=== PATIENT | male | born 1955 | race Caucasian/White ===

== ENCOUNTER 2020-08-30 08:00 | Emergency (ER) | payer MEDICARE ==
[~2020-08-30] VITALS: Ht 188 cm; Wt 106.7 kg
[2020-08-30] MEDS ORDERED: IOHEXOL 300 MG/ML 75 ML VIAL. IV ONE ×2 (08:30→09:00)
[2020-08-30 08:33] LABS: BASO % 0 % (0-3); EOS % 0 % (0-3); HEMATOCRIT 47.1 % (39.0-53.0); HEMOGLOBIN 15.7 g/dL (13.0-17.5); LYMPH # 0.7 x10^3/uL (1.0-4.8); LYMPH % 9 % (24-48); MEAN CORPUSCULAR HEMOGLOBIN 31 pg (25-35); MEAN CORPUSCULAR HGB CONC 33 g/dL (31-37); MEAN CORPUSCULAR VOLUME 92 fL (79-100); MONO # 0.2 x10^3/uL (0.0-1.1); MONO % 3 % (0-9); NEUT # 7.1 x10^3uL (1.8-7.7); NEUT % 88 % (31-73); PLATELET COUNT 230 x10^3/uL (140-400); RED BLOOD COUNT 5.15 x10^6/uL (4.30-5.70); RED CELL DISTRIBUTION WIDTH 13.1 % (11.5-14.5); WHITE BLOOD COUNT 8.1 x10^3/uL (4.0-11.0)
[2020-08-30 08:45] LABS: CALCIUM 10.4 mg/dL (8.5-10.1); CREATININE 1.3 mg/dL (0.7-1.3); GFR 55.4; POTASSIUM 4.2 mmol/L (3.5-5.1)
[2020-08-30] MEDS ORDERED: ONDANSETRON PF 4 MG/2 ML VIAL. IV ONE (08:45)
[2020-08-30] MEDS ORDERED: IV NORMAL SALINE 1,000ML 1,000 ML IV ONE (08:45)
--- NOTE | 2020-08-30 08:46 | PHYS DOC ---
Past History Past Medical History: GERD Past Surgical History: Appendectomy Additional Smoking Information: pt states that he hasn't smoked "for over 40 years" Alcohol Use: None General Adult EDM: Chief Complaint: ABDOMINAL PAIN HPI: HPI: This is a pleasant 65-year-old male presenting the emergency department today with epigastric abdominal pain that comes and goes. It is associated with nausea and vomiting. He has had multiple episodes of vomiting. He describes the vomitus is nonbloody and nonbilious. He reports normal stools and had a bowel movement yesterday. He denies fevers or chills. He denies changes in his skin color. He denies chest pain or shortness of breath. The pain is a sharp shooting pain. He thought it may have been gastritis and so he took an antacid which did not improve. He has a history of what he describes as "gallbladder pain". Review of systems is negative for polyuria dysuria hematuria diarrhea. Positive for abdominal pain. Negative for chest pain or shortness of breath. All other review of systems negative. ED course: 65-year-old male presenting with epigastric abdominal pain. Vital signs show hypertension. Otherwise heart rate within normal limits. Unremarkable CBC. Chemistry panel unremarkable other than elevated glucose. Lipase just above the reference range of normal. CT shows gallbladder stone without signs of cholecystitis. Repeat abdominal exam shows a nontender gallbladder. We will discharge the patient and refer him to a surgeon for outpatient evaluation for surgical cholecystectomy. Current Medications: Current Meds: Current Medications Medications (Trade) Dose Ordered Sig/Allison Start Time Stop Time Status Last Admin Dose Admin Iohexol (Omnipaque 300 Mg/ml) 75 ml 1X ONCE 08/30/20 08:30 08/30/20 08:31 DC Ondansetron HCl (Zofran) 4 mg 1X ONCE 08/30/20 08:45 08/30/20 08:46 Sodium Chloride 1,000 ml @ 1,000 mls/hr 1X ONCE 08/30/20 08:45 08/30/20 09:44 Allergies: Allergies: Allergies Coded Allergies Type Severity Reaction Last Updated Verified No Known Drug Allergies 08/30/20 No Physical Exam: PE: Constitutional: Well developed, well nourished, no acute distress, non-toxic appearance. [] HENT: Normocephalic, atraumatic, bilateral external ears normal, oropharynx moist, no oral exudates, nose normal. [] Eyes: PERRLA, EOMI, conjunctiva normal, no discharge. [] Neck: Normal range of motion, no tenderness, supple, no stridor. [] Cardiovascular:Heart rate regular rhythm, no murmur [] Lungs & Thorax: Bilateral breath sounds clear to auscultation [] Abdomen: Bowel sounds normal, soft, no tenderness, no masses, no pulsatile masses. [] No rebound tenderness or guarding. Negative McBurney's point. Nontender gallbladder. Negative Valera sign. Skin: Warm, dry, no erythema, no rash. [] Back: No tenderness, no CVA tenderness. [] Extremities: No tenderness, no cyanosis, no clubbing, ROM intact, no edema. [] Neurologic: Alert and oriented X 3, normal motor function, normal sensory function, no focal deficits noted. [] Psychologic: Affect normal, judgement normal, mood normal. [] Current Patient Data: Labs: Laboratory Tests Test 08/30/20 08:14 White Blood Count 8.1 x10^3/uL (4.0-11.0) Red Blood Count 5.15 x10^6/uL (4.30-5.70) Hemoglobin 15.7 g/dL (13.0-17.5) Hematocrit 47.1 % (39.0-53.0) Mean Corpuscular Volume 92 fL (79-100) Mean Corpuscular Hemoglobin 31 pg (25-35) Mean Corpuscular Hemoglobin Concent 33 g/dL (31-37) Red Cell Distribution Width 13.1 % (11.5-14.5) Platelet Count 230 x10^3/uL (140-400) Neutrophils (%) (Auto) 88 % (31-73) H Lymphocytes (%) (Auto) 9 % (24-48) L Monocytes (%) (Auto) 3 % (0-9) Eosinophils (%) (Auto) 0 % (0-3) Basophils (%) (Auto) 0 % (0-3) Neutrophils # (Auto) 7.1 x10^3uL (1.8-7.7) Lymphocytes # (Auto) 0.7 x10^3/uL (1.0-4.8) L Monocytes # (Auto) 0.2 x10^3/uL (0.0-1.1) Eosinophils # (Auto) 0.0 x10^3/uL (0.0-0.7) Basophils # (Auto) 0.0 x10^3/uL (0.0-0.2) Vital Signs: Vital Signs Date Time Temp Pulse Resp B/P (MAP) Pulse Ox O2 Delivery O2 Flow Rate FiO2 08/30/20 08:10 97.5 70 16 174/88 (116) 98 EKG: EKG: EKG shows sinus rhythm with a regular rate. ST segments congruent. Not suggestive of acute ischemia. [] Radiology/Procedures: Radiology/Procedures: [] Heart Score: Risk Factors: Risk Factors: DM, Current or recent (<one month) smoker, HTN, HLP, family history of CAD, obesity. Risk Scores: Score 0 - 3: 2.5% MACE over next 6 weeks - Discharge Home Score 4 - 6: 20.3% MACE over next 6 weeks - Admit for Clinical Observation Score 7 - 10: 72.7% MACE over next 6 weeks - Early Invasive Strategies Course & Med Decision Making: Course & Med Decision Making Pertinent Labs and Imaging studies reviewed. (See chart for details) [] Dragon Disclaimer: Dragon Disclaimer: This electronic medical record was generated, in whole or in part, using a voice recognition dictation system. Departure Departure: Impression: Primary Impression: Biliary colic Additional Impression: Cholelithiasis Disposition: 01 DC HOME SELF CARE/HOMELESS Condition: STABLE Referrals: BRET ESTRADA APRN (PCP) BALTAZAR VAUGHAN MD in 3-5 days Patient Instructions: Biliary Colic Additional Instructions: EMERGENCY DEPARTMENT GENERAL DISCHARGE INSTRUCTIONS I am referring you to a general surgeon for evaluation for possible cholecystectomy. Also, follow-up with your primary physician in 1 to 2 days. Return to the emergency department if you have any new or concerning findings. Thank you for coming to [facility] emergency department today and trusting us with you care. We trust that you had a positive experience in our Emergency Department. If you wish to speak to the department management, you may call the Director at [phone]. YOUR FOLLOW UP INSTRUCTIONS ARE FOLLOWS: 1. Do you have a private Doctor? If you do not have a private doctor, please ask for a resource list of physicians or clinics that may be able to assist you with follow up care. 2. If a lab test or culture has been done and does not come back immediately, your results will be reviewed and you will be notified if you need a change in treatment. ADDITIONAL INSTRUCTIONS AND INFORMATION: 1. Your care today has been supervised by a physician who is specially trained in emergency care. Many problems require more than one evaluation for a complete diagnosis and treatment. We recommend that you schedule your follow up appointment as recommended to ensure complete treatment of you illness or injury. If you are unable to obtain follow up care and continue to have a probl em, or if your condition worsens, we recommend that you return to the ED. 2. We are not able to safely determine your condition over the phone nor are we able to give sound medical advice over the phone. For these safety reasons, if you call for medical advice we will ask you to come to the ED for further evaluation. 3. If you have any questions regarding these discharge instructions please call the ED at [phone]. SAFETY INFORMATION: In the interest of safety, wellness, and injury prevention; we encourage you to wear your sealbelt, if you smoke; quite smoking, and we encourage family to use a protective helmet for bicycling and other sporting events that present an increased risk for head injury. IF YOUR SYMPTOMS WORSEN OR NEW SYMPTOMS DEVELOP, OR YOU HAVE CONCERNS ABOUT YOUR CONDITION; OR IF YOUR CONDITION WORSENS WHILE YOU ARE WAITING FOR YOUR FOLLOW UP APPOINTMENT; EITHER CONTACT YOUR PRIMARY CARE DOCTOR, THE PHYSICIAN WHOSE NAME AND NUMBER YOU WERE GIVEN, OR RETURN TO THE ED IMMEDIATELY. This condition should be evaluated by your primary care physician and any necessary consulting services for continued management within a few days (1-2) after discharge. Return to the emergency department if you have any new or concerning symptoms including but not limited to fever, chills, nausea, vomiting, intractable pain, any new rashes, chest pain, shortness of breath, uncontrolled bleeding, difficulty breathing, and/or vision loss. Scripts Metoclopramide Hcl (REGLAN) 10 Mg Tablet 1 TAB PO PRN TID PRN for NAUSEA for 30 Days, #10 TAB 0 Refills before food and bedtime Prov: DIAMOND VILLELA MD 08/30/20 Hydrocodone Bit/Acetaminophen (HYDROCODONE-APAP 5-325 ) 1 Each Tablet 1 TAB PO PRN Q6HRS PRN for PAIN for 5 Days, #10 TAB 0 Refills Caution: this medication can make you drowsy. Do not drive or operate heavy machinery when using this medication. Prov: DIAMOND VILLELA MD 08/30/20 DIAMOND VILLELA MD Aug 30, 2020 08:46
[2020-08-30 08:48] LABS: ALBUMIN 4.5 g/dL (3.4-5.0); DIRECT BILIRUBIN 0.1 mg/dL (0.0-0.2); TOTAL BILIRUBIN 0.6 mg/dL (0.2-1.0); TOTAL PROTEIN 8.1 g/dL (6.4-8.2)
--- NOTE | 2020-08-30 08:55 | EKG ---
[address] [address] Test Date: 2020-08-30 Test Time: 08:39:41 Pat Name: PRESLEY ARIAS Department: Room: Gender: M [employer]: [employer] : 1955 Requested By: DIAMOND VILLELA Order Number: [id number] Reading MD: Measurements Intervals [place] Rate: 65 P: 43 UT: 186 QRS: -7 QRSD: 90 T: 19 QT: 398 QTc: 415 Interpretive Statements SINUS RHYTHM LEFTWARD AXIS OTHERWISE NORMAL ECG RI6.02 No previous ECG available for comparison
--- NOTE | 2020-08-30 09:22 | RAD ---
Exam performed: CT scan of the head without contrast. Date of Service: 08/30/2020. Comparison: None available. Clinical History: Head trauma. Technique: Helical acquisitions are obtained from the foramen magnum to the vertex without intravenou s administration of contrast. Findings: The ventricles are midline without evidence of dilatation. Normal pearce-white differentiation is maint ained. There is no extra axial fluid collection, intraparenchymal hemorrhage or mass lesion. There i s a mucous retention cyst in the left maxillary sinus, the remainder visualized paranasal sinuses are clear The visualized portions of the orbits, and the mastoid air cells appear clear. The calvarium is intact. Impression: 1. No acute intracranial process detected. 2. Chronic left maxillary sinus disease. PQRS Compliance Statement: One or more of the following individualized dose reduction techniques were utilized for this examinat ion: 1. Automated exposure control 2. Adjustment of the mA and/or kV according to patient size 3. Use of iterative reconstruction technique Electronically signed by: Malena Perez MD (08/30/2020 9:20 AM) [id number]
--- NOTE | 2020-08-30 09:38 | RAD ---
Study: CT abdomen/pelvis with intravenous contrast Indication: Abdominal pain. Comparison: None. Technique: Helical CT imaging performed of the abdomen and pelvis after the intravenous administratio n of 60 cc contrast. Sagittal and coronal reformats were obtained. One or more of the following individualized dose reduction techniques were utilized for this examinat ion: 1. Automated exposure control 2. Adjustment of the mA and/or kV according to patient size 3. Use of iterative reconstruction technique. Findings: Unremarkable visualized lungs and mediastinal contents. Hepatic steatosis. Solitary gallstone measuring 1.[address] manifestations of acute cholecystit is. Unremarkable biliary tree. Unremarkable pancreas, spleen and adrenal glands. Symmetric renal pare nchymal enhancement. No stone or collecting system dilatation. Unremarkable bladder and prostate. Within normal limits colon. Surgically absent appendix. Nonobstructed small bowel. No appreciable gas tric abnormality. Mild scattered calcific atherosclerosis. Nonaneurysmal aorta. No lymphadenopathy by size criteria. No free fluid or pneumoperitoneum. Symmetric muscular bulk. No subcutaneous fluid collection or nodular ity. No acute or aggressive osseous abnormality. Scattered degenerative changes such as seen mainly at the lower lumbar spine. Thoracolumbar dextrocurvature which is mild with the apex at L1. Impression: 1. Solitary calcified gallstone measuring up to 1.3 cm but there are no CT manifestations of acute c holecystitis. Correlate for right upper quadrant pain and targeted sonography or a HIDA scan could be performed if there is further concern for gallbladder dysfunction as the cause of the patient's symp toms. 2. Hepatic steatosis and a few additional chronic observations detailed in the body the report. Electronically signed by: ROMEO GILMAN MD (08/30/2020 9:36 AM) [id number]
[2020-08-30 09:42] VITALS: BP 182/96
[2020-08-30] MEDS ORDERED: HYDR-2155 PO (10:00)
[2020-08-30] MEDS ORDERED: METO10TA81 PO (10:12)
== END 2020-08-30 10:15 | disposition home or self-care (01) ==
LOC: ER 08:00
DX: K80.20 Calculus of gallbladder without cholecystitis without obstruction (principal); R11.2 Nausea with vomiting, unspecified; K80.50 Calculus of bile duct without cholangitis or cholecystitis without obstruction; K21.9 Gastro-esophageal reflux disease without esophagitis; Z90.89 Acquired absence of other organs
CPT/HCPCS: 36415; 70450; 74177; 80048; 80076; 83690; 84484; 85025; 93005; 96361; 96374; 99285; J2405; J7030; Q9967

== ENCOUNTER → 2020-10-19 | Outpatient (CLI) | payer MEDICARE ==
[~2020-10-19] MED LIST: HYDR-2155 PO; METO10TA81 PO
--- NOTE | 2020-10-19 15:33 | RAD ---
US EXT NON VASC RIGHT History:Reason: RT GROIN PAIN / Spl. Instructions: / History: Comparison: CT August 30, 2020 Technique: Sonographic examination of the right inguinal region Findings: No mass or fluid collection within the right inguinal region. Patent right common femoral artery and vein. Small benign-appearing lymph nodes within the right inguinal region largest measures 1.67 m. No evidence of inguinal hernia. Impression: 1. No ultrasound evidence of abnormality within the right inguinal region. Electronically signed by: Jose Rico DO (10/19/2020 3:30 PM) [id number]
== END ==
LOC: US 12:15
PROVIDERS: ATTEND Surgery
DX: R10.30 Lower abdominal pain, unspecified (principal)
CPT/HCPCS: 76881